=== PATIENT | male | born 1955 | race Caucasian/White ===

== ENCOUNTER 2022-05-22 08:20 | Emergency (ER) | payer MEDICARE, OTHER, SELFPAY ==
[2022-05-22] VITALS (14 sets, daily range): BP systolic 124–173; BP diastolic 84–99; PULSE 66–91; RESP 12–18; TEMP 37; O2SAT 93–98; BMI 36.2
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
--- NOTE | 2022-05-22 08:49 | DI.CT.S_ITS ---
PROCEDURE: CT KIDNEY URETER BLADDER (KUB) INDICATIONS: acute on chronic back pain, left flank pain. stone vs back TECHNIQUE: Axial sections were acquired from the lung bases to the pubic symphysis. Coronal and sagittal reformats were performed. For radiation dose reduction, the following was used: automated exposure control, adjustment of mA and/or kV according to patient size. COMPARISON: [facility], CT, CT ABDOMEN PELVIS WITH CONTRAST, 09/22/2020, 12:28. FINDINGS: Image quality: Excellent. Lung bases: Lung bases. Tiny hiatal hernia. Heart: No significant findings. URINARY: Right Kidney: No stones or hydronephrosis. Right Ureter: No hydroureter. Left Kidney: No stones or hydroureter. There are several cortical and exophytic cysts arising from the left kidney, stable over multiple studies. No solid masses. Left Ureter: No hydroureter. Bladder: Normal wall thickness. No stones. ABDOMEN: Liver: Normal size with a smooth margin. Scattered thin-walled hypodensities throughout mainly the left lobe of the liver, largest measuring up to 1.8 cm, likely benign cysts or hemangiomas. Gallbladder: There is hyperdense material layering dependently in the gallbladder. No calcified stone. Biliary ducts: Nondilated. Pancreas: Normal. Spleen: Normal size. Single calcification in the spleen. Adrenal Glands: No nodules. Stomach and Bowel: Mild sigmoid diverticulosis. No acute pericolonic inflammation. Peritoneum: No abnormal intraperitoneal fluid. No free air. Ventral Wall: No hernia. Abdominal Nodes: No enlarged retroperitoneal or mesenteric lymph nodes. Vessels: Aorta and inferior vena cava are normal in size. PELVIS: Pelvic Organs: Normal size prostate gland and seminal vesicles. Pelvic Nodes: Prominent right external iliac node and bilateral nonenlarged pelvic sidewall lymph nodes. Moderately prominent right inguinal lymph node. These are unchanged compared to remote prior studies. Miscellaneous: No inguinal hernias are seen. Bones: There is posterior vertebral body fusion from L3 through S1. Hardware appears intact. Bone alignment is normal. IMPRESSION: 1. No evidence of urinary calcification or obstructive uropathy. 2. Incidental left renal and hepatic cysts (or small hepatic hemangiomas). 3. Intact lower lumbosacral vertebral body fusion. 4. Cholelithiasis or gallbladder sludge. 5. Chronic, borderline pelvic adenopathy, nonspecific and probably reactive. Dictated by: Sherie Caruso M.D. on 05/22/2022 at 8:10 Approved by: Sherie Caruso M.D. on 05/22/2022 at 8:19
[2022-05-22] MEDS: diazePAM 5 MG TABLET 10 MG PO (09:21)
[2022-05-22] MEDS: OXYCODONE IR 5 MG TABLET 10 MG PO (09:21)
[2022-05-22 09:33] LABS: Add Manual Diff / Slide Review NO; Basophils Absolute Auto 100 /uL (0-100); Basophils Percent Auto 0.9 % (0-2); Eosinophils Absolute Auto 300 /uL (0-450); Eosinophils Percent Auto 4.2 % (2-4); Hematocrit 37.9 % (41-53); Hemoglobin 12.7 g/dL (13.5-17.5); Lymphocytes Absolute Auto 1900 /uL (1100-4500); Lymphocytes Percent Auto 31.6 % (25-40); Mean Corpuscular HGB Conc 33.4 % (30-36); Mean Corpuscular Hemoglobin 30.8 PG (26-34); Mean Corpuscular Volume 92.1 fL (80-100); Monocytes Absolute Auto 600 /uL (0-900); Monocytes Percent Auto 9.1 % (3-14); Neutrophils Absolute Auto 3300 /uL (1500-7000); Neutrophils Percent Auto 54.2 % (50-75); Platelet Count 175 X10^3/uL (150-400); Red Blood Cell Count 4.12 X10^6/uL (4.5-5.9); Red Cell Distribution Width 13.6 % (11.6-14.8); White Blood Cell Count 6.1 X10^3/uL (4.5-11.0)
[2022-05-22 09:53] LABS: Alanine Aminotransferase 43 IU/L (<50); Albumin 4.2 g/dL (3.5-5.0); Alkaline Phosphatase 71 U/L (38-126); Aspartate Aminotransferase 49 IU/L (17-59); BUN Creatinine Ratio 8.5 (6-22); Bilirubin Total 0.7 mg/dL (0.2-1.3); Blood Urea Nitrogen 7 mg/dL (9-20); Calcium 8.8 mg/dL (8.4-10.2); Carbon Dioxide 23 mmol/L (22-32); Chloride 101 mmol/L (98-107); Estimated Glomerular Filt Rate > 60 mL/min (>60); Globulin 4.3 g/dL (1.7-4.1); Glucose 104 mg/dL (80-110); HEMOLYSIS 22 (0-50); Lipase 42 U/L (23-300); Potassium 4.5 mmol/L (3.4-5.1); Sodium 136 mmol/L (137-145); Total Protein 8.5 g/dL (6.3-8.2)
--- NOTE | 2022-05-22 12:13 | PC.NURSE ---
patient ambulated approx 10 feet and felt like he was going to fall. He stated he was not able to go home with the current level of pain he was having. Provider made aware. MR and medication ordered
--- NOTE | 2022-05-22 12:29 | DI.CT.S_ITS ---
PROCEDURE: CT LUMBAR SPINE WO CON INDICATIONS: lumbar back pain r, acute on chronic. prior sx. TECHNIQUE: Noncontrast 3 mm thick sections acquired from the T12 level to the sacrum. Sagittal and coronal reformats were constructed. For radiation dose reduction, the following was used: automated exposure control. COMPARISON: None. FINDINGS: Image quality: Excellent. Bones: There is normal bony alignment. Postoperative changes of L3 through S1 pedicular screw and mei fixation without hardware complication or perihardware lucency. No acute vertebral body compression fractures. No suspicious lytic or blastic bony lesions. No pars defects. T12-L1: No significant disc bulge. The foramina and central canal are patent. L1-L2: Diffuse disc bulge with no significant foraminal or central canal stenosis. L2-L3: Diffuse disc bulge causes mild bilateral foraminal stenosis. Moderate central canal stenosis. L3-L4: Pedicular screw and mei fixation at this level. A diffuse disc bulge with disc osteophytes causes moderate bilateral foraminal stenosis. There is facet arthrosis. The central canal is patent. L4-L5: Discectomy with pedicular screw and mei fixation at this level. Mild bilateral foraminal stenosis. The central canal is patent. L5-S1: Discectomy with pedicular screw and mei fixation at this level. Moderate left and mild right bilateral foraminal stenosis. The central canal is patent. Soft tissues: No retroperitoneal masses or hematomas. Visualized aorta is normal in caliber. IMPRESSION: 1. Postoperative changes of L3 through S1 pedicular screw and mei fixation without complication. 2. Degenerative disc disease at L2-3 with moderate central canal stenosis. 3. Multilevel foraminal stenosis as detailed above. Dictated by: Jad Easton M.D. on 05/22/2022 at 13:45 Approved by: Jad Easton M.D. on 05/22/2022 at 13:53
[2022-05-22] MEDS: ACETAMINOPHEN 325 MG TABLET 975 MG PO (12:37)
== END 2022-05-22 14:27 | disposition home or self-care (01) ==
PROVIDERS: Emergency Provider Emergency Medicine; PCP Family Medicine
DX: M54.50 Low back pain, unspecified (principal); Z87.442 Personal history of urinary calculi; I25.10 Atherosclerotic heart disease of native coronary artery without angina pectoris
CPT/HCPCS: 36415; 72131; 74176; 80053; 81003; 83690; 85025; 99284